=== PATIENT | female | born 1985 | race Caucasian/White ===

== ENCOUNTER 2017-04-08 23:44 | Emergency (ER) | payer SELFPAY ==
--- NOTE | 2017-04-08 23:56 | ED Physician Documentation ---
Abdominal Pain - HISTORIAN Historian: patient - HPI Chief Complaint: Abdominal Pain Onset: hours (2129) Timing: still present Context: denies: out of country travel, bad food, recent trauma Severity: moderate Quality: pain Associated Symptoms: nausea, vomiting. denies: diarrhea Further Comments: yes (31 year old female patient presents with 2 hour history of nausea and vomiting. Patient reports eating shrimp elena a few hours before symptoms started. Reports similar episodes every few weeks. Denies fever or chills. 1 episode diarrhea today.) - ROS CONST: no problems GI/: none CVS/RESP: none EYES/ENT: none MS/SKIN/LYMPH: none NEURO/PSYCH: none - SOCIAL HX Smoking History: non-smoker - FAMILY HX Family History: denies: none - PAST HX Past History: none Surgeries/Procedures: other (gastric bypass) Home Medications: Ambulatory Orders Medication Instructions Recorded Ondansetron HCl Rapdis [Zofran Odt] 4 mg PO Q6 PRN #30 tab 04/09/17 Allergies/Adverse Reactions: Allergies Allergy/AdvReac Type Severity Reaction Status Date / Time No Known Allergies Allergy Verified 04/09/17 00:22 - VITAL SIGNS Vital Signs: Vital Signs Temp Pulse Resp BP Pulse Ox 97.5 F L 71 18 139/90 99 04/08/17 23:44 04/08/17 23:44 04/08/17 23:44 04/08/17 23:44 04/08/17 23:44 - REVIEWED ASSESSMENTS Nursing Assessment Reviewed: Yes Vitals Reviewed: Yes Progress - Progress Progress: Patient reports continued nausea after zofran. Recommended follow up with PCP for outpatient US. Patient does not have PCP. List provided. ED Results Lab/Radiology - Lab Results Lab Results: Lab Results 04/08/17 04/08/17 00:11 00:11 WBC 9.10 K/ul K/ul (4.00-12.00) RBC 4.60 M/ul M/ul (3.90-5.20) Hgb 14.4 g/dL g/dL (12.0-16.0) Hct 42.5 % % (34.5-46.5) MCV 92.4 fl fl (80.0-100.0) MCH 31.2 pg pg (28.0-34.0) MCHC 33.8 g/dL g/dL (30.0-36.0) RDW 12.8 % % (11.3-14.3) Plt Count 286 K/mm3 K/mm3 (130-400) Neut % (Auto) 68.6 % % (39.0-79.0) Lymph % (Auto) 22.8 % % (16.0-50.0) [place] % (Auto) 3.2 % % (0.0-11.0) Eos % (Auto) 3.8 % % (0.0-6.8) Baso % (Auto) 0.5 (0.0-1.5) Neut # (Auto) 6.3 # k/uL # k/uL (1.4-7.7) Lymph # (Auto) 2.1 # k/uL # k/uL (0.6-4.0) Hutchinson # (Auto) 0.3 # k/uL # k/uL (0.0-0.9) Eos # (Auto) 0.4 # k/uL # k/uL (0.0-0.6) Baso # (Auto) 0.0 # k/uL # k/uL (0.0-0.5) Reactive Lymphs % 1.1 % % (0.0-5.0) Reactive Lymphs # 0.1 # k/uL # k/uL (0.0-0.8) Sodium 138 mmol/L mmol/L (136-145) Potassium 3.6 mmol/L mmol/L (3.5-5.1) Chloride 101 mmol/L mmol/L (98-107) Carbon Dioxide 25 mmol/L mmol/L (22-30) BUN 11 mg/dL mg/dL (7-17) Creatinine 0.70 mg/dL mg/dL (0.52-1.04) Estimated Creat Clear 231 Est GFR ( Amer) > 60 (60 - ) Est GFR (Non-Af Amer) > 60 (60 - ) Glucose 141 mg/dL H mg/dL (74-106) Calcium 9.4 mg/dL mg/dL (8.4-10.2) Total Bilirubin 0.2 mg/dL mg/dL (0.2-1.3) AST 41 U/L U/L (15-46) ALT 29 U/L U/L (13-69) Alkaline Phosphatase 94 U/L U/L (38-126) Total Protein 8.2 g/dL g/dL (6.3-8.2) Albumin 4.5 g/dL g/dL (3.5-5.0) Lipase 186 U/L U/L (23-300) - Orders Orders: ED Orders Category Date Time Status CBC/PLATELET/DIFF Stat Lab 04/08/17 00:11 Completed CMP Stat Lab 04/08/17 00:11 Completed LIPASE Stat Lab 04/08/17 00:11 Completed 0.9 % Sodium Chloride [Normal Saline] 1,000 ml Med 04/08/17 23:55 Discontinued IV NOW Ondansetron HCl/Pf [Zofran 4 mg/2 ml] Med 04/08/17 23:55 Discontinued 4 mg IVP NOW ONE Promethazine HCl [Phenergan] Med 04/09/17 00:37 Once 25 mg IM NOW ONE Abdominal Pain Physical Exam - Physical Exam General Appearance: mild distress EENT: eye inspection normal, MALA RESPIRATORY: no resp distress, chest non-tender, breath sounds normal CVS: reg rate & rhythm, heart sounds normal, equal pulses, no murmur, no gallop , PMI nml, no JVD, no friction rub, 24 ABDOMEN: soft, no organomegaly, normal bowel sounds, no abdominal bruit, no distension, tenderness (RUQ + McBurney's) SKIN: normal color, warm/dry, NR, INT, PAL, DR EXTREMITIES: non-tender, normal range of motion, no evidence of injury, no edema , J, [employer] NE[employer]: oriented X3, CN's nml as tested, motor nml, sensation nml Vital Signs: Vital Signs Temp Pulse Resp BP Pulse Ox 97.5 F L 71 18 139/90 99 04/08/17 23:44 04/08/17 23:44 04/08/17 23:44 04/08/17 23:44 04/08/17 23:44 Discharge Prescriptions: Ondansetron HCl Rapdis [Zofran Odt] 4 mg PO Q6 PRN #30 tab PRN Reason: Nausea / Vomiting Referrals: Primary Doctor,No [Primary Care Provider] - 2 Days
[2017-04-09 00:16] LABS: BASOPHILS % 0.5 (0.0-1.5); EOSINOPHILS % 3.8 % (0.0-6.8); MEAN CORPUSCULAR HEMOGLOBIN 31.2 pg (28.0-34.0); MEAN CORPUSCULAR VOLUME 92.4 fl (80.0-100.0); MONOCYTES % 3.2 % (0.0-11.0); NEUTROPHILS # 6.3 # k/uL (1.4-7.7)
[2017-04-09] MEDS: 0.9 % SODIUM CHLORIDE 1,000 ML IV ONE (00:17)
[2017-04-09] MEDS: ONDANSETRON HCL/PF 4 MG/ 2ML VIAL IVP ONE (00:18)
[2017-04-09 00:22] VITALS: BP 139/90
[2017-04-09 00:25] LABS: eGFR (African) > 60; eGFR (Non-African) > 60
[2017-04-09] MEDS: PROMETHAZINE HCL 25 MG/ML VIAL IM ONE (00:52)
[2017-04-09] MEDS: PROMETHAZINE HCL 25 MG TABLET PO ONE (00:53)
== END 2017-04-09 01:05 | disposition home or self-care (01) ==
LOC: ED 23:44
DX: R10.9 Unspecified abdominal pain (principal); R11.2 Nausea with vomiting, unspecified
CPT/HCPCS: 80053; 83690; 85025; 96361; 96372; 96374; 99283; J2405; J2550; J7030; S1016